=== PATIENT | female | born 1980 | race Caucasian/White ===

== ENCOUNTER 2019-05-30 09:52 | Emergency (ER) | payer OTHER ==
[2019-05-30] MEDS ORDERED: Sodium Chloride 0.9% 10 ML Syringe FLUSH PRN (10:56)
[2019-05-30] MEDS ORDERED: Sodium Chloride 0.9% 1,000 ML IV SCH (11:00)
--- NOTE | 2019-05-30 12:26 | US ---
First trimester obstetrical ultrasound: Multiple real-time images were obtained transvaginally. Comparison: No previous study. No intrauterine gestational sac is seen. 8 mm dominant follicle is noted within the right ovary. Left ovary appears unremarkable. No adnexal abnormalities are seen. No free fluid is identified. Impression: 1. No intrauterine gestational sac. No adnexal abnormalities are seen. Note: Differential includes miscarriage, too early to visualize as well as less likely nonvisualized ectopic . If patient has positive test, recommend follow-up beta-hCG and if any further questions remain, recommend repeat ultrasound exam in 5-7 days. Diagnostic code #2 Study was dictated in MDT
--- NOTE | 2019-05-30 13:37 | EDM.PDOC ---
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 She felt weak, lightheaded was walking and passed out falling to a carpeted floor. She felt better at time of exam resting on cot in ED. No chest or shoulder pain. No difficulty breathing. There has been no vomiting. slight vaginal spotting this AM, LMP about 3 wks ago, on no current control other than condoms. No voiding sx, no fever or chills. Bilateral Lower Abdomen Pain Score (Numeric/FACES): 9 - Related Data Allergies Allergy/AdvReac Type Severity Reaction Status Date / Time No Known Allergies Allergy Verified 05/30/19 10:01 Home Meds: Home Meds Escitalopram Oxalate 20 mg PO DAILY 05/30/19 [History] Nitrofurantoin Monohyd/M-Cryst [Macrobid 100 mg Capsule] 100 mg PO Q12HR #10 capsule 05/30/19 [Rx] Past Medical History Cardiovascular History: Reports: None Respiratory History: Reports: None Gastrointestinal History: Reports: None Genitourinary History: Reports: None AREA CAPTAIN History: Reports: None Musculoskeletal History: Reports: None Neurological History: Reports: None Psychiatric History: Reports: Anxiety Endocrine/Metabolic History: Reports: None Hematologic History: Reports: None Immunologic History: Reports: None Oncologic (Cancer) History: Reports: None - Infectious Disease History Infectious Disease History: Reports: None - Past Surgical History HEENT Surgical History: Reports: Oral Surgery Dermatological Surgical History: Reports: Other (See Below) Social & Family History - Tobacco Use Smoking Status *Q: Never Smoker - Caffeine Use Caffeine Use: Reports: Coffee - Recreational Drug Use Recreational Drug Use: No ED ROS GENERAL - Review of Systems Review Of Systems: See Below Constitutional: Denies: Fever, Chills HEENT: Denies: Throat Pain Respiratory: Denies: Shortness of Breath Cardiovascular: Denies: Chest Pain GI/Abdominal: Reports: Abdominal Pain, Nausea. Denies: Diarrhea, Vomiting : Reports: Other (slight vag. spotting today) Skin: Reports: No Symptoms Neurological: Reports: Dizziness (gone) ED EXAM, RENAL/ - Physical Exam Exam: See Below General Appearance: Alert, No Apparent Distress Eye Exam: Bilateral Eye: PERRL Throat/Mouth: Normal Inspection, Normal Oropharynx Neck: Supple Respiratory/Chest: No Respiratory Distress, Lungs Clear, Normal Breath Sounds Cardiovascular: Regular Rate, Rhythm GI/Abdominal: Soft, Other (very mild tenderness lower abd/pelvis). No: Guarding , Rebound Back Exam: No: CVA Tenderness (L), CVA Tenderness (R) Extremities: Normal Inspection, Normal Range of Motion Neurological: Alert, Oriented, No Motor/Sensory Deficits Skin Exam: Warm, Dry, Normal Color Course - Vital Signs Last Recorded V/S: Last Vital Signs Temp 96.6 F L 05/30/19 09:57 Pulse 77 05/30/19 09:57 Resp 16 05/30/19 09:57 BP 113/84 05/30/19 09:57 Pulse Ox 94 L 05/30/19 09:57 - Orders/Labs/Meds Orders: Active Orders 24 hr Category Date Time Status Peripheral IV Care [RC] . DIRECTED Care 05/30/19 10:56 Active CULTURE URINE [RM] Stat Lab 05/30/19 13:24 Ordered Peripheral IV Insertion Adult [OM.PC] Stat Oth 05/30/19 10:56 Ordered Labs: Laboratory Tests 05/30/19 05/30/19 05/30/19 Range/Units 11:00 11:00 11:00 WBC 7.99 (3.98-10.04) K/mm3 RBC 4.55 (3.98-5.22) M/mm3 Hgb 13.1 (11.2-15.7) gm/dl Hct 39.2 (34.1-44.9) % MCV 86.2 (79.4-94.8) fl MCH 28.8 (25.6-32.2) pg MCHC 33.4 (32.2-35.5) g/dl RDW Std Deviation 38.8 (36.4-46.3) fL Plt Count 229 (182-369) K/mm3 MPV 11.9 (9.4-12.3) fl Neut % (Auto) 75.7 H (34.0-71.1) % Lymph % (Auto) 16.1 L (19.3-51.7) % [place] % (Auto) 7.4 (4.7-12.5) % Eos % (Auto) 0.4 L (0.7-5.8) Baso % (Auto) 0.3 (0.1-1.2) % Neut # (Auto) 6.05 (1.56-6.13) K/mm3 Lymph # (Auto) 1.29 (1.18-3.74) K/mm3 [place] # (Auto) 0.59 H (0.24-0.36) K/mm3 Eos # (Auto) 0.03 L (0.04-0.36) K/mm3 Baso # (Auto) 0.02 (0.01-0.08) K/mm3 Sodium 141 (136-145) mEq/L Potassium 3.9 (3.5-5.1) mEq/L Chloride 103 (98-107) mEq/L Carbon Dioxide 26 (21-32) mEq/L Anion Gap 15.9 H (5-15) BUN 14 (7-18) mg/dL Creatinine 1.0 (0.55-1.02) mg/dL Est Cr Clr Drug Dosing 70.71 mL/min Estimated GFR (MDRD) > 60 (>60) mL/min BUN/Creatinine Ratio 14.0 (14-18) Glucose 91 (74-106) mg/dL Calcium 8.8 (8.5-10.1) mg/dL Total Bilirubin 0.5 (0.2-1.0) mg/dL AST 19 (15-37) U/L ALT 22 (14-59) U/L Alkaline Phosphatase 63 (46-116) U/L Total Protein 7.5 (6.4-8.2) g/dl Albumin 3.9 (3.4-5.0) g/dl Globulin 3.6 gm/dL Albumin/Globulin Ratio 1.1 (1-2) HCG, Qual Negative (NEGATIVE) Urine Color (Yellow) Urine Appearance (Clear) Urine pH (5.0-8.0) Ur Specific [place] (1.005-1.030) Urine Protein (Negative) Urine Glucose (UA) (Negative) Urine Ketones (Negative) Urine Occult Blood (Negative) Urine Nitrite (Negative) Urine Bilirubin (Negative) Urine Urobilinogen (0.2-1.0) Ur Leukocyte Esterase (Negative) Urine RBC (0-5) /hpf Urine WBC (0-5) /hpf Ur Squamous Epith Cells (0-5) /hpf Urine Bacteria (FEW) /hpf Urine Mucus (FEW) /hpf 05/29/ Range/Units 12:07 WBC (3.98-10.04) K/mm3 RBC (3.98-5.22) M/mm3 Hgb (11.2-15.7) gm/dl Hct (34.1-44.9) % MCV (79.4-94.8) fl MCH (25.6-32.2) pg MCHC (32.2-35.5) g/dl RDW Std Deviation (36.4-46.3) fL Plt Count (182-369) K/mm3 MPV (9.4-12.3) fl Neut % (Auto) (34.0-71.1) % Lymph % (Auto) (19.3-51.7) % [place] % (Auto) (4.7-12.5) % Eos % (Auto) (0.7-5.8) Baso % (Auto) (0.1-1.2) % Neut # (Auto) (1.56-6.13) K/mm3 Lymph # (Auto) (1.18-3.74) K/mm3 [place] # (Auto) (0.24-0.36) K/mm3 Eos # (Auto) (0.04-0.36) K/mm3 Baso # (Auto) (0.01-0.08) K/mm3 Sodium (136-145) mEq/L Potassium (3.5-5.1) mEq/L Chloride (98-107) mEq/L Carbon Dioxide (21-32) mEq/L Anion Gap (5-15) BUN (7-18) mg/dL Creatinine (0.55-1.02) mg/dL Est Cr Clr Drug Dosing mL/min Estimated GFR (MDRD) (>60) mL/min BUN/Creatinine Ratio (14-18) Glucose (74-106) mg/dL Calcium (8.5-10.1) mg/dL Total Bilirubin (0.2-1.0) mg/dL AST (15-37) U/L ALT (14-59) U/L Alkaline Phosphatase (46-116) U/L Total Protein (6.4-8.2) g/dl Albumin (3.4-5.0) g/dl Globulin gm/dL Albumin/Globulin Ratio (1-2) HCG, Qual (NEGATIVE) Urine Color Other H (Yellow) Urine Appearance Cloudy H (Clear) Urine pH 7.5 (5.0-8.0) Ur Specific [place] 1.025 (1.005-1.030) Urine Protein 1+ H (Negative) Urine Glucose (UA) Negative (Negative) Urine Ketones Trace H (Negative) Urine Occult Blood 3+ H (Negative) Urine Nitrite Negative (Negative) Urine Bilirubin Negative (Negative) Urine Urobilinogen 0.2 (0.2-1.0) Ur Leukocyte Esterase 2+ H (Negative) Urine RBC >100 H (0-5) /hpf Urine WBC 20-30 H (0-5) /hpf Ur Squamous Epith Cells 0-5 (0-5) /hpf Urine Bacteria Few (FEW) /hpf Urine Mucus Not seen (FEW) /hpf Meds: Medications Discontinued Medications Generic Name Dose Route Start Last Admin Trade Name Freq PRN Reason Stop Dose Admin Sodium Chloride 1,000 mls @ 999 mls/hr 05/30/19 11:00 05/30/19 11:07 Normal Saline IV 999 mls/hr ONETIME TARI Administration Sodium Chloride 10 ml 05/30/19 10:56 05/30/19 11:07 Saline Flush FLUSH 10 ml ASDIRECTED PRN Administration Keep Vein Open - Re-Assessments/Exams Free Text/Narrative Re-Assessment/Exam: 05/30/19 17:54 HCG came back neg, other labs nl, vitals have been nl here in the ED. Pelvic US done that did not show acute abnormality, no visible blood or fluid, see Radiologist report for details. Pt resting fairly comfortably at time of discharge. Of note patient's did call in a couple of hrs ago right after getting home and she did become dizzy, lightheaded, nauseated, on the way home, did vomit on the way home or after getting home with a 2nd brief syncopal episode. She was currently lying on the couch feeling better. I advised that they were welcome to return now or at any time thereafter. It would seem safe to let her continue to rest for awhile but if continuing to have further lightheadedness, near syncope or syncope, other unusal sx they need to return. expressed understanding and agreeable to that plan. Departure - Departure Time of Disposition: 13:35 Disposition: Home, Self-Care 01 Condition: Fair Clinical Impression: UTI (urinary tract infection), Syncope - Discharge Information Prescriptions: Nitrofurantoin Monohyd/M-Cryst [Macrobid 100 mg Capsule] 100 mg PO Q12HR #10 capsule Instructions: Urinary Tract Infection, Adult, [id number] Referrals: Karly Raymond, INSPECTOR [employer] [Primary Care Provider] - Forms: ED Department Discharge Additional Instructions: Rest, drink plenty of water to maintain hydration, macrobid 100 mg twice daily, prescription has been sent to [facility] electronically, they are open today 12 noon to 4 PM only. Follow up clinic as needed, return to ED as needed if symptoms worsening in any way. Sepsis Event Note - Evaluation Sepsis Screening Result: No Definite Risk - Focused Exam Vital Signs: Vital Signs Temp Pulse Resp BP Pulse Ox 05/30/19 09:57 96.6 F L 77 16 113/84 94 L Date Exam was Performed: 05/30/19 Time Exam was Performed: 17:49 - My Orders Last 24 Hours: My Active Orders 05/30/19 10:56 Peripheral IV Care [RC] . DIRECTED Peripheral IV Insertion Adult [OM.PC] Stat 05/30/19 13:24 CULTURE URINE [] Stat - Assessment/Plan Last 24 Hours: My Active Orders 05/30/19 10:56 Peripheral IV Care [RC] . DIRECTED Peripheral IV Insertion Adult [OM.PC] Stat 05/30/19 13:24 CULTURE URINE [RM] Stat
== END 2019-05-30 13:35 | disposition home or self-care (01) ==
LOC: JD.ED 09:52
DX: N39.0 Urinary tract infection, site not specified (principal); R55 Syncope and collapse; F41.9 Anxiety disorder, unspecified; Z79.899 Other long term (current) drug therapy
CPT/HCPCS: 36415; 76817; 80053; 81001; 84703; 85025; 87086; 96360; 99284; J7030; 99283

== ENCOUNTER 2020-12-26 06:48 | Day surgery (SDC) | payer OTHER ==
--- NOTE | 2020-12-26 06:41 | PCM.PREANE ---
Preanesthetic Assessment - Procedure Proposed Procedure: Total Vaginal Hysterectomy, possible laparoscopic assisted vaginal hysterectomy with bilateral salpingectomy - Anesthesia/Transfusion/Family Hx Anesthesia History: No Prior Anesthesia Family History of Anesthesia Reaction: No Transfusion History: No Prior Transfusion(s) Intubation History: Unknown - Review of Systems General: No Symptoms Pulmonary: Cough Cardiovascular: No Symptoms Gastrointestinal: No Symptoms Neurological: No Symptoms Other: Reports: Easy Bruising, Anxiety - Physical Assessment NPO Status Date: 12/25/20 NPO Status Time: 21:30 Vital Signs: BP 126/87 HR 94 RR 16 98.8 98% RA Height: 1.65 m Weight: 82 kg ASA Class: 2 Mental Status: Alert & Oriented x3 Airway Class: Mallampati = 2 Dentition: Reports: [place]alking Rock(s), Caries Thyro-Mental Finger Breadths: 3 Mouth Opening Finger Breadths: 3 ROM/Head Extension: Full Lungs: Clear to Auscultation, Normal Respiratory Effort Cardiovascular: Regular Rate, Regular Rhythm - Lab Values: Labs reviewed and okay to proceed - Allergies Allergies/Adverse Reactions: Allergies Allergy/AdvReac Type Severity Reaction Status Date / Time No Known Allergies Allergy Verified 12/25/20 12:19 - Blood Blood Available: No - Anesthesia Plan Pre-Op Medication Ordered: None - Acknowledgements Anesthesia Type Planned: General Anesthesia Pt an Appropriate Candidate for the Planned Anesthesia: Yes Alternatives and Risks of Anesthesia Discussed w Pt/Guardian: Yes Pt/Guardian Understands and Agrees with Anesthesia Plan: Yes PreAnesthesia Questionnaire HEENT History: Reports: Allergic Rhinitis, Impaired Vision Cardiovascular History: Reports: None Respiratory History: Reports: Other (See Below) Other Respiratory History: snoring, COVID early November Gastrointestinal History: Reports: None Genitourinary History: Reports: None LIAISON ENGINEER History: Reports: Other (See Below) Other OB/BYN History: dysmenorrhea, heavy menses, menorrhagia, SAB, Musculoskeletal History: Reports: Other (See Below) Other Musculoskeletal History: lateral epicondylitis, right wrist ganglion cyst excision x 2 Neurological History: Reports: None Psychiatric History: Reports: Anxiety, Depression Endocrine/Metabolic History: Reports: None Hematologic History: Reports: None Immunologic History: Reports: None Oncologic (Cancer) History: Reports: None Dermatologic History: Reports: Other (See Below) Other Dermatologic History: ingrown toenail removal - Infectious Disease History Infectious Disease History: Reports: None - Past Surgical History Head Surgeries/Procedures: Reports: None HEENT Surgical History: Reports: Oral Surgery Cardiovascular Surgical History: Reports: None Respiratory Surgical History: Reports: None GI Surgical History: Reports: None Female Surgical History: Reports: None Endocrine Surgical History: Reports: None Neurological Surgical History: Reports: None Musculoskeletal Surgical History: Reports: None, Ganglion Cyst Oncologic Surgical History: Reports: None Dermatological Surgical History: Reports: Other (See Below) - SUBSTANCE USE Tobacco Use Status *Q: Never Tobacco User Tobacco Use Within Last Twelve Months: No Second Hand Smoke Exposure: No Days Per Week of Alcohol Use: 0 Number of Drinks Per Day: 0 Total Drinks Per Week: 0 Recreational Drug Use History: No - HOME MEDS Home Medications: Home Meds Cholecalciferol (Vitamin D3) [Vitamin D3] 1,000 unit PO DAILY 12/25/20 [History] Magnesium Oxide [Magnesium] 500 mg PO DAILY 12/25/20 [History] Multivitamin 1 tab PO DAILY 12/25/20 [History] Sertraline [Zoloft] 50 mg PO DAILY 12/25/20 [History] - CURRENT (IN HOUSE) MEDS Current Meds: Current Medications Lactated Ringer's (Ringers, Lactated) 1,000 mls @ 125 mls/hr IV ASDIRECTED TARI Stop: 01/14/21 23:00 Lidocaine/Sodium Bicarbonate (Lidocaine 1%/Sod Bicarbonate In Ns 8.4% 1 Ml Syringe) 0.25 ml IDERM ONETIME PRN PRN Reason: Prior to IV Start Stop: 12/26/20 23:00 Sodium Chloride (Sodium Chloride 0.9% 10 Ml Syringe) 10 ml FLUSH ASDIRECTED PRN PRN Reason: Keep Vein Open Stop: 12/26/20 23:00
[~2020-12-26 06:48] MED LIST: Albuterol 0.083% 2.5 MG/3 ML Neb Soln NEB ONE; Lactated Ringers 1,000 ML IV SCH; Lidocaine 1%/Sod Bicarbonate in NS 8.4% 1 ML Syringe IDERM PRN; Sodium Chloride 0.9% 10 ML Syringe FLUSH PRN
[2020-12-26] MEDS ORDERED: Lidocaine 1% with EPINEPHrine 1:100,000 10 ML MDV ONE (07:08)
[2020-12-26] MEDS ORDERED: Midazolam 1 MG/ML 2 ML SDV ONE (07:53)
[2020-12-26] MEDS ORDERED: Rocuronium 50 MG/5 ML Vial ONE (07:53)
[2020-12-26] MEDS ORDERED: Ondansetron 4 MG/2 ML SDV ONE (07:53)
[2020-12-26] MEDS ORDERED: ceFAZolin 1 GM Vial ONE (07:53)
[2020-12-26] MEDS ORDERED: Propofol 200 MG/20 ML SDV ONE ×2 (07:53→08:36)
[2020-12-26] MEDS ORDERED: fentaNYL 250 MCG/5 ML SDV ONE (07:53)
[2020-12-26] MEDS ORDERED: Dexamethasone 4 MG/ML 5 ML MDV ONE (07:53)
[2020-12-26] MEDS ORDERED: Dexmedetomidine 200 MCG/2 ML SDV ONE (08:35)
[2020-12-26] MEDS ORDERED: Sodium Chloride 0.9% 100 ML ONE (08:35)
[2020-12-26] MEDS ORDERED: HYDROmorphone 0.5 MG/0.5 ML Syringe ONE (08:47)
[2020-12-26] MEDS ORDERED: Ketorolac 30 MG/ML SDV ONE (09:00)
[2020-12-26] MEDS ORDERED: Ondansetron 4 MG/2 ML SDV IVPUSH PRN ×2 (09:10→09:31)
[2020-12-26] MEDS ORDERED: Acetaminophen/oxyCODONE 325-5 MG Tab PO PRN (09:10)
--- NOTE | 2020-12-26 09:14 | PCM.OPNOTE ---
- General Post-Op/Procedure Note Date of Surgery/Procedure: 12/26/20 Operative Procedure(s): Total vaginal hysterectomy with bilateral salpingectomy Findings: Uterus is upper limits normal size. Fallopian tubes and ovaries were otherwise relatively normal. Some minimal scarring noted possibly noted on the surface of the right ovary. Pre Op Diagnosis: 1. Menorrhagia. 2. Dysmenorrhea Post-Op Diagnosis: Same Anesthesia Technique: General ET Tube Other Anesthesia Type: Lidocaine quarter percent with [id number] mL totallocal Primary Surgeon: Milo Vasquez Secondary Surgeon: Lili Jo Anesthesia Provider: Martina Canada Reason Sales Technician Home Theater Was Necessary: Retraction, assistance, patient safety, quality of care. Pathology: Uterus and bilateral fallopian tubes in one specimen container Fluid Replacement, Intraop: 1,000 EBL in mLs: 25 Complications: None Condition: Good Free Text/Narrative:: Surgery duration: 32 minutes. Procedure: The patient was placed in supine position on the operating table. General endotracheal anesthesia was accomplished. After positioning, and adequate prep and drape, the procedure was then performed. Sterile speculum was placed in the vagina and cervix was visualized. Cervix was injected with lidocaine quarter percent with epinephrine-20 mL used. A full circumference incision was made in the cervical epithelium. The bladder was pushed well back off cervix. Posterior cul-de-sac was then entered sharply without problems. Left uterosacral was crossclamped with a Enseal vessel closure system. The left uterosacral and then the right uterosacral ligament pedicles were developed using the Enseal system. The anterior cul-de-sac was then entered without problems and the uterine vasculature, cardinal ligament and broad ligament then developed using Enseal vessel closure system. The uterus was inverted at this time and upper broad ligament fallopian tube pedicles were crossclamped with Osvaldo clamps. Specimen was totally removed. Both these pedicles were then secured with the Enseal vessel closure system. Left and right fallopian tube was normal in appearance.. Using Enseal vessel closure system each of the tubes was then removed and sent with the specimen. The patient was found to be hemostatically intact at this time. Vaginal cuff was sutured for hemostatic reasons with a running locked suture of 0 Monocryl from the 2 o'clock position to the 10 o'clock position posteriorly. Vaginal cuff was then closed from right to left side with a running locked suture of 0 Monocryl. Patient was returned to supine position and awakened from general endotracheal anesthesia. She tolerated the procedure and left the operating room in satisfactory condition.
[2020-12-26] MEDS ORDERED: fentaNYL 100 MCG/2 ML SDV IVPUSH PRN (09:31)
[2020-12-26] MEDS ORDERED: HYDROmorphone 0.5 MG/0.5 ML Syringe IVPUSH PRN (09:31)
--- NOTE | 2020-12-26 09:33 | PCM.POSTAN ---
POST ANESTHESIA ASSESSMENT - MENTAL STATUS Mental Status: Alert, Oriented - VITAL SIGNS Vital Signs: Last Vital Signs Temp 98.8 F 12/26/20 07:00 Pulse 94 12/26/20 07:00 Resp 16 12/26/20 07:00 BP 126/87 12/26/20 07:00 Pulse Ox 98 12/26/20 07:00 Vital signs at 0922 99/55 HR 64 RR 16 97.3 100% 6 L - RESPIRATORY Respiratory Status: Respiratory Rate WNL, Airway Patent, O2 Saturation Stable - CARDIOVASCULAR CV Status: Pulse Rate WNL, Blood Pressure Stable - GASTROINTESTINAL GI Status: No Symptoms - PAIN Pain Score: 0 - POST OP HYDRATION Hydration Status: Adequate & Stable
[2020-12-26] MEDS ORDERED: Acetaminophen/oxyCODONE 325-5 MG Tab PO ONE (10:45)
--- NOTE | 2020-12-26 10:45 | PCM48HPAN ---
Post Anesthesia Note - EVALUATION WITHIN 48HRS OF ANESTHETIC Vital Signs in Normal Range: Yes Patient Participated in Evaluation: Yes Respiratory Function Stable: Yes Airway Patent: Yes Cardiovascular Function Stable: Yes Hydration Status Stable: Yes Pain Control Satisfactory: Yes Nausea and Vomiting Control Satisfactory: Yes Mental Status Recovered: Yes Vital Signs: Last Vital Signs Temp 97.5 F 12/26/20 10:30 Pulse 61 12/26/20 10:30 Resp 11 L 12/26/20 10:30 BP 96/63 12/26/20 10:30 Pulse Ox 95 12/26/20 10:30
[2020-12-26] MEDS ORDERED: Ibuprofen 600 MG Tab PO PRN (15:00)
== END 2020-12-26 11:40 | disposition home or self-care (01) ==
LOC: JD.SDS 06:48
PROVIDERS: ATTEND Obstetrics & Gynecology
DX: N92.0 Excessive and frequent menstruation with regular cycle (principal); N94.6 Dysmenorrhea, unspecified; F41.8 Other specified anxiety disorders; Z79.899 Other long term (current) drug therapy; Z98.890 Other specified postprocedural states
CPT/HCPCS: 36415; 58262; 81003; 81025; 85025; 86850; 86900; 86901; A9270; J0690; J1100; J1170; J1885; J2250; J2405; J2704; J2710; J3010; J7120; 00944